=== PATIENT | female | born 2005 | race Caucasian/White ===

== ENCOUNTER 2024-03-01 06:49 | Day surgery (SDC) | payer MEDICAID ==
[2024-03-01] MEDS ORDERED: fentaNYL 100 MCG/2 ML SDV IV ONE (06:50)
[2024-03-01] MEDS ORDERED: Propofol 200 MG/20 ML SDV IV ONE (06:50)
[2024-03-01] MEDS ORDERED: Midazolam 1 MG/ML 2 ML SDV IV ONE (06:50)
[2024-03-01] MEDS ORDERED: Sodium Chloride 0.9% 10 ML Syringe FLUSH PRN (07:00)
[2024-03-01] MEDS: Lactated Ringers 1,000 ML IV SCH (07:40)
== END 2024-03-01 09:56 | disposition home or self-care (01) ==
LOC: FB.SDS 06:49
PROVIDERS: ATTEND Surgery
DX: K20.90 Esophagitis, unspecified without bleeding (principal); K29.80 Duodenitis without bleeding; K22.89 Other specified disease of esophagus; F17.210 Nicotine dependence, cigarettes, uncomplicated
CPT/HCPCS: 00731; 81025; 88305; J2250; J2704; J3010; J7120